=== PATIENT | male | born 1945 | race Caucasian/White ===

== ENCOUNTER 2019-01-05 07:35 | Emergency (ER) | payer OTHER, MEDICARE ==
[~2019-01-05] VITALS: Ht 172.7 cm; Wt 77.1 kg
[2019-01-05] MEDS ORDERED: TOPROL XL25 MG PO (08:03)
[2019-01-05] MEDS ORDERED: ROSUVASTATIN CA20 MG PO (08:03)
[2019-01-05] MEDS ORDERED: DUTASTERIDE0.5 MG PO (08:04)
[2019-01-05] MEDS ORDERED: LOSARTAN-HCTZ1 EACH PO (08:04)
[2019-01-05] MEDS ORDERED: NAPROXEN375 MG PO (10:04)
[2019-01-05] MEDS ORDERED: TRAMADOL 50 MG50 MG PO (10:04)
[2019-01-05 10:36] VITALS: BP 154/89
== END 2019-01-05 10:40 | disposition home or self-care (01) ==
LOC: ER 07:35
DX: S83.91XA Sprain of unspecified site of right knee, initial encounter (principal); M17.11 Unilateral primary osteoarthritis, right knee; E78.00 Pure hypercholesterolemia, unspecified; J45.909 Unspecified asthma, uncomplicated; Z90.49 Acquired absence of other specified parts of digestive tract; X50.1XXA Overexertion from prolonged static or awkward postures, initial encounter; Y93.01 Activity, walking, marching and hiking; Y92.89 Other specified places as the place of occurrence of the external cause; Y99.8 Other external cause status